=== PATIENT | male | born 1955 | race Caucasian/White ===

== ENCOUNTER 2022-03-08 10:36 | Emergency (ER) | payer BC, MEDICARE ==
[2022-03-08 10:50] LABS: Absolute Neutrophil Ct (ANC) 3.43 x10^3/uL (1.4-6.9); Basophil (Absolute #) 0.07 x10^3/uL (0-0.4); Eosinophil % 2.2 % (0.00-5.0); Eosinophil (Absolute #) 0.14 x10^3/uL (0-0.5); Hematocrit 43.1 % (42-50); Hemoglobin 14.5 g/dL (12.5-18.0); Lymphocytes % 34.4 % (24.0-44.0); Mean Cell Volume 86.5 fL (78-100); Mean Corpuscular Hemoglobin 29.1 pg (26-32); Mean Corpuscular Hgb Concent. 33.6 g/dL (32-36); Mean Platelet Volume 8.6 fL (7.5-11.0); Monocyte (Absolute #) 0.53 x10^3/uL (0.0-1.3); Monocytes % 8.3 % (0.0-12.0); Neutrophil % 53.7 % (36.0-66.0); Platelet Count 239 x10^3/uL (150-450); Red Blood Count 4.98 x10^6/uL (4.1-5.6); Red Cell Distribution Width 13.9 % (11.5-14.0); White Blood Count 6.4 x10^3/uL (4.0-10.5)
[2022-03-08] MEDS ORDERED: Nitrostat 0.4 MG (ED) SL ONE (10:54)
[2022-03-08] MEDS ORDERED: BABY ASPIRIN 81 MG CHEW PO ONE (10:54)
--- NOTE | 2022-03-08 11:00 | ERPHSYRPT ---
- History of Present Illness Historian: patient, other () Exam Limitations: no limitations Patient Subjective Stated Complaint: Pt reports he started having chest pain while walking that is causing tingling into left arm. Triage Nursing Assessment: Pt ambulated to ED cot without difficulty while holding chest. Alert and oriented x3. Skin w/d/p. No apparent respiratory distress. S1 and S2 auscultated. Lungs clear anteriorly. Chest pain started while active. Physician History: 66 yo wm w sudden onset of mid-sternal chest pain w radiation to his LUE which started 90 minutes before arrival while walking into [facility]. Pain described as "someone sitting on chest" and was accompanied by N/dyspnea/diaphoresis wo vomiting. He denies CAD/AK but has a h/o DM/HTN/smoked 1ppd until 4 months ago. Pt takes 81mg ASA daily. Nothing makes the pain better or worse, and it is currently a 6/10 w the worse being 8/10. Timing/Duration: other (90 minutes while walking into [facility]) Quality: other ("sitting on chest") Location: substernal Chest Pain Radiation: arm (LUE) Severity of Pain-Max: severe Severity of Pain-Current: moderate Modifying Factors: Improves With: nothing Associated Symptoms: nausea, shortness of breath, diaphoresis Prior Chest Pain/Cardiac Workup: no prior chest pain Nitro Today/Relief: no nitro taken today Aspirin Treatment Today: 81 mg x 1 Allergies/Adverse Reactions: penicillin G Allergy (Mild, Verified 03/08/22 10:36) Blisters Home Medications: Aspirin EC 81 mg [Ecotrin 81 mg] 81 mg PO DAILY 03/08/22 [History] Empagliflozin/Metformin HCl [Synjardy 12.5-1,000 mg Tablet] 1 tab PO DAILY 03/08/22 [History] Levothyroxine Sodium 137 mcg PO DAILY 03/08/22 [History] Lisinopril 10 mg [Zestril 10 MG] 10 mg PO DAILY 03/08/22 [History] Ondansetron ODT 4 MG [Zofran Odt 4 mg] 4 mg PO Q4HPRN PRN 03/08/22 [History] Hx Tetanus, Diphtheria Vaccination/Date Given: Yes Hx Influenza Vaccination/Date Given: Yes Hx Pneumococcal Vaccination/Date Given: No Travel Risk - International Travel Have you traveled outside of the country in past 3 weeks: No - Coronavirus Screening Are you exhibiting any of the following symptoms?: No Close contact with a COVID-19 positive Pt in past 14-21 Days: No - Vaccine Status Have you recieved a Covid-19 vaccination: Yes Animal Biologist: Moderna - Vaccination Dates Date of 2cond Vaccination (if applicable): unknown Dates if Unknown: ? - Review of Systems Constitutional: No Symptoms Eyes: No Symptoms Ears, Nose, & Throat: No Symptoms Respiratory: No Symptoms Cardiac: Chest Pain Abdominal/Gastrointestinal: No Symptoms, Nausea Musculoskeletal: No Symptoms Skin: No Symptoms Neurological: No Symptoms Psychological: No Symptoms Endocrine: No Symptoms Hematologic/Lymphatic: No Symptoms Immunological/Allergic: No Symptoms - Past Medical History Pertinent Past Medical History: Yes Neurological History: Stroke ENT History: No Pertinent History Cardiac History: Hypertension Respiratory History: COPD Endocrine Medical History: No Pertinent History Musculoskeletal History: Other GI Medical History: No Pertinent History History: No Pertinent History Psycho-Social History: No Pertinent History Male Reproductive Disorders: No Pertinent History - Past Surgical History Past Surgical History: Yes Neuro Surgical History: No Pertinent History Cardiac: No Pertinent History Gastrointestinal: No Pertinent History Genitourinary: No Pertinent History Musculoskeletal: No Pertinent History Male Surgical History: No Pertinent History Other Surgical History: thyroid removed. - Social History Smoking Status: Former smoker How long have you smoked: yrs Exposure to second hand smoke: Yes Drug Use: none Patient Lives Alone: No - Nursing Vital Signs Nursing Vital Signs: Initial Vital Signs Temperature 96.5 F 03/08/22 10:36 Pulse Rate 71 03/08/22 10:36 Respiratory Rate 22 03/08/22 10:36 Blood Pressure 154/97 03/08/22 10:36 O2 Sat by Pulse Oximetry 97 03/08/22 10:36 Pain Scale Pain Intensity 2 Hypertensive - Physical Exam General Appearance: mild distress Eye Exam: PERRL/EOMI, eyes nml inspection Ears, Nose, Throat Exam: normal ENT inspection, TMs normal, pharynx normal, moist mucous membranes Neck Exam: normal inspection, non-tender, supple, full range of motion, No meningismus, No mass, No Brudzinski, No Kernig's, No carotid bruit Respiratory Exam: normal breath sounds, lungs clear, airway intact, No chest tenderness, No respiratory distress Cardiovascular Exam: regular rate/rhythm, normal heart sounds, normal peripheral pulses, capillary refill <2 sec, No murmur Gastrointestinal/Abdomen Exam: soft, normal bowel sounds, No tenderness Back Exam: normal inspection, normal range of motion, No CVA tenderness, No vertebral tenderness Extremity Exam: normal inspection, normal range of motion Neurologic Exam: alert, oriented x 3, cooperative, 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, normal mood/affect, nml cerebellar function, nml station & gait, sensation nml Skin Exam: normal color, warm, dry Lymphatic Exam: No adenopathy SpO2 Interpretation: normal SpO2: 97 O2 Delivery: Room Air - Course EKG Interpreted by Me: RATE (NSR/Rate68/Occ PVC and PAC/Normal QT-QTc/Inferior T wave changes/EKG #2 sinus sobeida/Normal QT-QTc/Flipped Twaves 3 and AVF) - Radiology Exams Chest X-ray Interpretation: Discussed w/ radiologist (CXR-hyperinflated, nothing acute) Ordered Tests: Active Orders 24 hr Category Date Time Status EKG-ER Only STAT Care 03/08/22 10:38 Completed EKG-ER Only STAT Care 03/08/22 14:45 Completed CHEST 1 VIEW (PORTABLE) Stat Exams 03/08/22 10:38 Completed CBC W DIFF Stat Lab 03/08/22 10:50 Completed CMP Stat Lab 03/08/22 10:50 Completed NT PRO BNP Stat Lab 03/08/22 10:50 Completed PROTIME WITH INR Stat Lab 03/08/22 10:50 Completed PTT Stat Lab 03/08/22 10:50 Completed TROPONIN Q4H Lab 03/08/22 10:50 Completed TROPONIN Q4H Lab 03/08/22 13:57 Completed Medication Summary Discontinued Medications Generic Name Dose Route Start Last Admin Trade Name Freq PRN Reason Stop Dose Admin Aspirin 324 mg 03/08/22 10:54 03/08/22 10:57 Aspirin 81 Mg Tab.Chew PO 03/08/22 10:55 324 mg STAT ONE Administration Enoxaparin Sodium 80 mg 03/08/22 15:33 03/08/22 15:36 Enoxaparin Sodium 80 Mg/0.8 Ml Syringe SQ 03/08/22 15:34 80 mg STAT ONE Administration Enoxaparin Sodium Confirm 03/08/22 15:35 Enoxaparin Sodium 80 Mg/0.8 Ml Syringe Administered 03/08/22 15:36 Dose 80 mg SQ .STK-MED ONE Nitroglycerin 0.4 mg 03/08/22 10:54 03/08/22 10:57 Nitroglycerin 0.4 Mg (Ed) 0.4 Mg Tab.Subl SL 03/08/22 10:55 0.4 mg STAT ONE Administration Nitroglycerin 1 gm 03/08/22 16:48 03/08/22 16:53 Nitroglycerin 1 Gm Packet TOP 03/08/22 16:49 1 gm STAT ONE Administration Nitroglycerin Confirm 03/08/22 16:49 Nitroglycerin 1 Gm Packet Administered 03/08/22 16:50 Dose 1 gm .ROUTE .STK-MED ONE Lab/Rad Data: Laboratory Result Diagrams 03/08/22 10:50 03/08/22 10:50 Laboratory Results 03/08/22 03/08/22 03/08/22 Range/Units Unknown 13:57 10:50 WBC (4.0-10.5) x10^3/uL RBC (4.1-5.6) x10^6/uL Hgb (12.5-18.0) g/dL Hct (42-50) % MCV (78-100) fL MCH (26-32) pg MCHC (32-36) g/dL RDW (11.5-14.0) % Plt Count (150-450) x10^3/uL MPV (7.5-11.0) fL Gran % (36.0-66.0) % Immature Gran % (Auto) (0.00-0.4) % Nucleat RBC Rel Count (0.00-0.1) % Eos # (Auto) (0-0.5) x10^3/uL Immature Gran # (Auto) (0.00-0.03) x10^3u/L Absolute Lymphs (auto) (1.0-4.6) x10^3/uL Absolute Monos (auto) (0.0-1.3) x10^3/uL Absolute Nucleated RBC (0.00-0.01) x10^3u/L Lymphocytes % (24.0-44.0) % Monocytes % (0.0-12.0) % Eosinophils % (0.00-5.0) % Basophils % (0.0-0.4) % Absolute Granulocytes (1.4-6.9) x10^3/uL Basophils # (0-0.4) x10^3/uL PT (9.4-12.5) SECONDS INR (0.8-3.0) APTT (25.1-36.5) SECONDS Sodium (137-145) mmol/L Potassium (3.5-5.1) mmol/L Chloride (98-107) mmol/L Carbon Dioxide (22-30) mmol/L Anion Gap (5-15) MEQ/L BUN (9-20) mg/dL Creatinine (0.66-1.25) mg/dL Estimated GFR ML/MIN Glucose (74-106) mg/dL Calcium (8.4-10.2) mg/dL Total Bilirubin (0.2-1.3) mg/dL AST (17-59) U/L ALT (0-50) U/L Alkaline Phosphatase (38-126) U/L Troponin I 0.177 H* < 0.012 (0.000-0.034) ng/mL NT-Pro-B Natriuret Pep (0-900) pg/mL Serum Total Protein (6.3-8.2) g/dL Albumin (3.5-5.0) g/dL Influenza Type A Ag NEGATIVE (NEGATIVE) Influenza Type B Ag NEGATIVE (NEGATIVE) RSV (PCR) NEGATIVE (Negative) SARS-CoV-2 (PCR) NEGATIVE (NEGATIVE) 03/08/22 03/08/22 03/08/22 Range/Units 10:50 10:50 10:50 WBC 6.4 (4.0-10.5) x10^3/uL RBC 4.98 (4.1-5.6) x10^6/uL Hgb 14.5 (12.5-18.0) g/dL Hct 43.1 (42-50) % MCV 86.5 (78-100) fL MCH 29.1 (26-32) pg MCHC 33.6 (32-36) g/dL RDW 13.9 (11.5-14.0) % Plt Count 239 (150-450) x10^3/uL MPV 8.6 (7.5-11.0) fL Gran % 53.7 (36.0-66.0) % Immature Gran % (Auto) 0.3 (0.00-0.4) % Nucleat RBC Rel Count 0.0 (0.00-0.1) % Eos # (Auto) 0.14 (0-0.5) x10^3/uL Immature Gran # (Auto) 0.02 (0.00-0.03) x10^3u/L Absolute Lymphs (auto) 2.20 (1.0-4.6) x10^3/uL Absolute Monos (auto) 0.53 (0.0-1.3) x10^3/uL Absolute Nucleated RBC 0.00 (0.00-0.01) x10^3u/L Lymphocytes % 34.4 (24.0-44.0) % Monocytes % 8.3 (0.0-12.0) % Eosinophils % 2.2 (0.00-5.0) % Basophils % 1.1 (0.0-0.4) % Absolute Granulocytes 3.43 (1.4-6.9) x10^3/uL Basophils # 0.07 (0-0.4) x10^3/uL PT 9.8 (9.4-12.5) SECONDS INR 0.92 (0.8-3.0) APTT 25.3 (25.1-36.5) SECONDS Sodium 136 L (137-145) mmol/L Potassium 4.1 (3.5-5.1) mmol/L Chloride 109 H (98-107) mmol/L Carbon Dioxide 23 (22-30) mmol/L Anion Gap 8.6 (5-15) MEQ/L BUN 21 H (9-20) mg/dL Creatinine 0.77 (0.66-1.25) mg/dL Estimated GFR > 60.0 ML/MIN Glucose 119 H (74-106) mg/dL Calcium 8.7 (8.4-10.2) mg/dL Total Bilirubin 0.60 (0.2-1.3) mg/dL AST 32 (17-59) U/L ALT 22 (0-50) U/L Alkaline Phosphatase 95 (38-126) U/L Troponin I (0.000-0.034) ng/mL NT-Pro-B Natriuret Pep 27.4 (0-900) pg/mL Serum Total Protein 6.7 (6.3-8.2) g/dL Albumin 3.9 (3.5-5.0) g/dL Influenza Type A Ag (NEGATIVE) Influenza Type B Ag (NEGATIVE) RSV (PCR) (Negative) SARS-CoV-2 (PCR) (NEGATIVE) - Progress Progress: improved Air Movement: good Progress Note: 03/08/22 14:57 ASA 324mg po x1 1 SL NTG w total relief of pain 03/08/22 16:[address] Silva at [place]([facility] has no cardiology coverage this weekend) 80mg sq Lovenox Pt painfree after initial SL NTG 0.4 x1 03/08/22 22:06 Pt developed mild chest pain before transfer, so nitropaste placed on chest Counseled pt/family regarding: lab results, diagnosis, need for follow-up, rad results - Departure Departure Disposition: Transfer Clinical Impression: NSTEMI (non-ST elevated myocardial infarction) Condition: Stable Critical Care Time: Yes Critical Care Time(excluding separately billable procedures): Critical 30-74 mins Referrals: POPPY TAN NP [NON-STAFF PHY W/O PRIVILEGES] - Follow up/PCP as directed
[2022-03-08 11:08] LABS: INR 0.92 (0.8-3.0); PROTIME 9.8 SECONDS (9.4-12.5); PTT 25.3 SECONDS (25.1-36.5)
[2022-03-08 11:13] LABS: ALBUMIN 3.9 g/dL (3.5-5.0); ALKALINE PHOSPHATASE 95 U/L (38-126); ANION GAP 8.6 MEQ/L (5-15); BLOOD UREA NITROGEN 21 mg/dL (9-20); CHLORIDE 109 mmol/L (98-107); Calcium 8.7 mg/dL (8.4-10.2); Carbon Dioxide 23 mmol/L (22-30); Creatinine 1 0.77 mg/dL (0.66-1.25); EST GLOMERULAR FILTRATION RATE > 60.0 ML/MIN; Glucose 119 mg/dL (74-106); NT PRO BNP 27.4 pg/mL (0-900); Potassium 4.1 mmol/L (3.5-5.1); SGOT/AST 32 U/L (17-59); SGPT/ALT 22 U/L (0-50); SODIUM 136 mmol/L (137-145); Total Protein 6.7 g/dL (6.3-8.2)
--- NOTE | 2022-03-08 11:19 | XRAY ---
Indication: Chest pain. Comparison: February 07, 2012 Portable chest remains hyperinflated and clear. Heart and mediastinal structures within normal limits. Bony thorax intact again with mild osteopenia and degenerative changes. Impression: Continued nonacute hyperinflated chest.
[2022-03-08 15:20] LABS: INFLUENZA A NEGATIVE (NEGATIVE); INFLUENZA B NEGATIVE (NEGATIVE); RESPIRATORY SYNCTIAL VIRUS NEGATIVE (Negative); SARS-CoV-2 Xpert Express NEGATIVE (NEGATIVE)
[2022-03-08] MEDS ORDERED: ENOXAPARIN SODIUM SQ ONE ×2 (15:33→15:35)
[2022-03-08] MEDS ORDERED: NITRO-BID 2% UD PACKETS TOP ONE (16:48)
[2022-03-08] MEDS ORDERED: NITRO-BID 2% UD PACKETS ONE (16:49)
[2022-03-08 17:04] VITALS: BP 118/61; PULSE 80
[2022-03-08 22:07] VITALS: O2SAT 97
== END 2022-03-08 17:00 | disposition short-term general hospital (02) ==
LOC: ED 10:36
DX: I21.4 Non-ST elevation (NSTEMI) myocardial infarction (principal); R07.9 Chest pain, unspecified; R11.0 Nausea; R06.00 Dyspnea, unspecified; E11.9 Type 2 diabetes mellitus without complications; I10 Essential (primary) hypertension; Z79.84 Long term (current) use of oral hypoglycemic drugs; Z79.899 Other long term (current) drug therapy
CPT/HCPCS: 0241U; 36000; 36415; 71045; 80053; 83880; 84484; 85025; 85610; 85730; 93005; 96372; 99285; 99291; J1650; A9270-GY

== ENCOUNTER 2022-06-02 17:52 | Observation (INO) | payer MEDICARE ==
[2022-06-02] MEDS ORDERED: Zofran 4 MG/2 ML VIAL IV ONE (17:54)
[2022-06-02] MEDS ORDERED: MORPHINE SULFATE 2 MG INJ IV ONE (17:54)
[2022-06-02] MEDS ORDERED: Nitrostat 0.4 MG (ED) SL ONE ×2 (17:54→18:07)
[2022-06-02] MEDS ORDERED: BABY ASPIRIN 81 MG CHEW PO ONE (17:54)
--- NOTE | 2022-06-02 17:54 | ERPHSYRPT ---
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 10/10 severity at max, currently 3/10 No radiation. Described as pressure. Lasts for a few minutes. Both at rest and on exertion. +nausea, diaphoresis, cough Denies SOB, vomiting, diarrhea, abd pain, swelling Hx of LAD stent on 03/09/[address] Genao Timing/Duration: today Activities at Onset: other (using the restroom) Quality: pressure Location: central Chest Pain Radiation: no radiation Severity of Pain-Max: severe Severity of Pain-Current: mild Modifying Factors: Improves With: nitroglycerin. Worsens With: coughing, de fecating, exertion Associated Symptoms: nausea, cough, headache, No vomiting, No abdominal pain, No shortness of breath, No chills, No fever, No dizziness, No edema Prior Chest Pain/Cardiac Workup: cardiac cath, heart attack Nitro Today/Relief: 0.4 mg x 1, provided at home Aspirin Treatment Today: 81 mg x 1, provided at home Allergies/Adverse Reactions: penicillin G Allergy (Mild, Verified 06/02/22 17:55) Blisters Home Medications: Aspirin EC 81 mg [Ecotrin 81 mg] 81 mg PO DAILY 03/08/22 [History] Empagliflozin/Metformin HCl [Synjardy 12.5-1,000 mg Tablet] 1 tab PO DAILY 03/08/22 [History] Levothyroxine Sodium 137 mcg PO DAILY 03/08/22 [History] Lisinopril 10 mg [Zestril 10 MG] 10 mg PO DAILY 03/08/22 [History] Ondansetron ODT 4 MG [Zofran Odt 4 mg] 4 mg PO Q4HPRN PRN 03/08/22 [History] Hx Tetanus, Diphtheria Vaccination/Date Given: Yes Hx Influenza Vaccination/Date Given: Yes Hx Pneumococcal Vaccination/Date Given: No Travel Risk - Vaccine Status Have you recieved a Covid-19 vaccination: Yes Chief Marketing Officer: Moderna - Vaccination Dates Date of 2cond Vaccination (if applicable): unknown Dates if Unknown: ? - Review of Systems Constitutional: No Symptoms Eyes: No Symptoms Ears, Nose, & Throat: No Symptoms Respiratory: Cough, No Dyspnea, No Dyspnea on Exertion (GUTIERREZ) Cardiac: Chest Pain, No Edema, No Palpitations, No Orthopnea Abdominal/Gastrointestinal: Nausea, No Abdominal Pain, No Vomiting, No Diarrhea, No Constipation Genitourinary Symptoms: No Symptoms Musculoskeletal: No Symptoms Skin: No Symptoms Neurological: No Symptoms Psychological: No Symptoms Endocrine: No Symptoms Hematologic/Lymphatic: No Symptoms Immunological/Allergic: No Symptoms All Other Systems: Reviewed and Negative - Past Medical History Pertinent Past Medical History: Yes Neurological History: Stroke ENT History: No Pertinent History Cardiac History: Hypertension Respiratory History: COPD Endocrine Medical History: No Pertinent History Musculoskeletal History: Other GI Medical History: No Pertinent History History: No Pertinent History Psycho-Social History: No Pertinent History Male Reproductive Disorders: No Pertinent History - Past Surgical History Past Surgical History: Yes Neuro Surgical History: No Pertinent History Cardiac: No Pertinent History Gastrointestinal: No Pertinent History Genitourinary: No Pertinent History Musculoskeletal: No Pertinent History Male Surgical History: No Pertinent History Other Surgical History: thyroid removed. - Social History Smoking Status: Former smoker How long have you smoked: yrs Exposure to second hand smoke: Yes Drug Use: none Patient Lives Alone: No - Physical Exam General Appearance: mild distress Eye Exam: eyes nml inspection Ears, Nose, Throat Exam: normal ENT inspection Neck Exam: normal inspection Respiratory Exam: normal breath sounds, lungs clear, airway intact, No chest tenderness, No respiratory distress Cardiovascular Exam: regular rate/rhythm, normal heart sounds, No capillary refill <2 sec, No edema Gastrointestinal/Abdomen Exam: soft, normal bowel sounds, No tenderness, No guarding, No rebound Extremity Exam: normal inspection, No swelling, No tenderness Neurologic Exam: alert, oriented x 3, cooperative Skin Exam: diaphoresis SpO2 Interpretation: normal O2 Delivery: Room Air - Course Nursing assessment & vital signs reviewed: Yes EKG Interpreted by Me: RATE (66), Sinus Rhythm, NORMAL AXIS, NORMAL INTERVALS, Non-specific ST Changes - Radiology Exams Chest X-ray Interpretation: Interpreted by me, Negative - Progress Progress: improved Air Movement: good Progress Note: 06/02/22 18:54 Initial troponin neg, EKG shows no ST changes. D-dimer neg, CBC, CMP wnl. Will keep patient for 2nd troponin and likely admit for ACS r/o. Transfer care to Dr. Hutton at 1900. Blood Culture(s) Obtained: No Antibiotics given: No Medical Desision Making - Diagnostic Testing Diagnostic test were ordered, analyzed, and reviewed by me: Yes Radiological Interpretation: Interpreted by me - Risk of complications The pt has a mod risk of morbidity or mortality based on: Need for prescription drug management - Departure Clinical Impression: H/O heart artery stent Chest pain Qualifiers: Chest pain type: chest pain due to myocardial ischemia Ischemic chest pain type: stable angina pectoris Qualified Code(s): I20.8 - Other forms of angina p ectoris Condition: Fair Referrals: MAMADOU HUTTON MD [Primary Care Provider] - Follow up/PCP as directed Instructions: Angina (DC), Chest Pain (DC) Additional Instructions: Discharge/Care Plan DILSHAD CARDENAS was seen on 06/02/22 in the Emergency Room. The patient was counseled regarding Diagnosis,Lab results, Imaging studies, need for follow up and when to return to the Emergency Room. Prescriptions given: Discharge Note I have spoken with the patient and/or caregivers. I have explained the patient's condition, diagnosis and treatment plan based on the information available to me at this time. I have answered the patient's and/or caregiver's questions and addressed any concerns. The patient and/or caregivers have as good understanding of the patient's diagnosis, condition and treatment plan as can be expected at this point. The vital signs have been stable. The patient's condition is stable and appropriate for discharge from the emergency department. The patient will pursue further outpatient evaluation with the primary care physician or other designated or consulting physician as outlined in the discharge instructions. The patient and/or caregivers are agreeable to this plan of care and follow-up instructions have been explained in detail. The patient and/or caregivers have received these instruction. The patient/and or caregivers are aware that any significant change in condition or worsening of symptoms should prompt an immediate return to this or the closest emergency department or call 911. DILSHAD CARDENAS was seen on 06/02/22 n the Emergency Room. At that time you were treated for an emergent condition, during your visit Laboratory, Radiology and/or other procedures may have been ordered. It is very important that you follow-up with your Primary Care Physician MAMADOU HUTTON within the next 24-48 hours to review your Emergency Room visit and the final results of testing that was ordered. Some test results such as Urine Cultures, Blood Cultures, and other cultures if ordered will not be finalized for 24-48 hours. If you do not have a Primary Care Provider please call the medical records department at [phone] ext [phone] to obtain a copy of your results or you may sign into our patient portal to obtain these results by visiting us @ [email or web address] and completing the following steps: 1. Click on the Patient Portal link 2. Click the Patient Self Enrollment Link to complete the enrollment form and entering your 3. Once the enrollment form is completed you will receive an email with a temporary ID and password at the email address you provided. 4. Next choose a user name and password. Your user name must be at least 4 characters long and your password must be at least 4 characters long. 5. Choose a security question from the list and provide your answer to the question. If you already have signed into the Health Portal you may access your Health Care Information 30/09 by the following steps: 1. Login to our website @ [email or web address] 2. Enter your original user name and password. FAQS The [facility] Health Portal is an online tool that contains your Lab Results, Radiology Reports, Visit History, Discharge Instructions and Health Summary Lab and Radiology Results will not be available for 72 hours on the portal. The Portal is a secure site, passwords are encryted and URLs are re-written so they cannot be copied and pasted. You and authorized family members are the only ones who can access your Portal. Also there is a timeout feature that protects your information if you leave the Portal page open. If you have technical difficulty please use the Contact Us link on the page this will allow you to submit any questions you have regarding the Portal or you may contact the Medical Record Department at [phone]. <MAMADOU HUTTON - Last Filed: 06/02/22 19:20> - Past Medical History Cardiac History: Coronary Artery Disease, Myocardial Infarction ([place]) - Nursing Vital Signs Nursing Vital Signs: Initial Vital Signs Temperature 97.6 F 06/02/22 17:55 Pulse Rate 65 06/02/22 17:55 Respiratory Rate 20 06/02/22 17:55 Blood Pressure 105/65 06/02/22 17:55 O2 Sat by Pulse Oximetry 96 06/02/22 17:55 Pain Scale Pain Intensity 6 Ordered Tests: Active Orders 24 hr Category Date Time Status Cpr Ambulance Driver STAT Care 06/02/22 17:55 Active EKG-ER Only STAT Care 06/02/22 17:54 Active IV Insertion STAT Care 06/02/22 17:54 Active Pulse Oximetry (ED) STAT Care 06/02/22 17:54 Active CHEST 1 VIEW (PORTABLE) Stat Exams 06/02/22 17:55 Taken CBC W DIFF Stat Lab 06/02/22 18:10 Completed CMP Stat Lab 06/02/22 18:10 Completed D-DIMER QUANTITATIVE Stat Lab 06/02/22 18:10 Completed TROPONIN Q4H Lab 06/02/22 18:10 Completed TROPONIN Q4H Lab 06/02/22 22:00 Ordered TROPONIN Q4H Lab 06/03/22 02:00 Ordered Transfer Order Routine Transfer 06/02/22 Ordered Medication Summary Generic Name Dose Route Start Last Admin Trade Name Freq PRN Reason Stop Dose Admin Sodium Chloride 1,000 mls @ 999 mls/hr 06/02/22 18:35 06/02/22 18:37 Sodium Chloride 0.9% 1000 Ml IV 06/02/22 19:35 999 mls/hr .Q1H1M STA Administration Discontinued Medications Generic Name Dose Route Start Last Admin Trade Name Freq PRN Reason Stop Dose Admin Aspirin 324 mg 06/02/22 17:54 06/02/22 18:06 Aspirin 81 Mg Tab.Chew PO 06/02/22 17:55 324 mg STAT ONE Administration Aspirin Confirm 06/02/22 18:07 Aspirin 81 Mg Tab.Chew Administered 06/02/22 18:08 Dose 324 mg .ROUTE .STK-MED ONE Sodium Chloride Confirm 06/02/22 18:36 Sodium Chloride 0.9% 1000 Ml Administered 06/02/22 18:37 Dose 1,000 mls @ ud .ROUTE .STK-MED ONE Morphine Sulfate 2 mg 06/02/22 17:54 06/02/22 18:06 Morphine Sulfate 2 Mg/Ml Inj IV 06/02/22 17:55 2 mg STAT ONE Administration Morphine Sulfate Confirm 06/02/22 18:03 Morphine Sulfate 2 Mg/Ml Inj Administered 06/02/22 18:04 Dose 2 mg .ROUTE .STK-MED ONE Nitroglycerin 0.4 mg 06/02/22 17:54 06/02/22 18:07 Nitroglycerin 0.4 Mg (Ed) 0.4 Mg Tab.Subl SL 06/02/22 17:55 0.4 mg STAT ONE Administration Nitroglycerin Confirm 06/02/22 18:07 Nitroglycerin 0.4 Mg (Ed) 0.4 Mg Tab.Subl Administered 06/02/22 18:08 Dose 0.4 mg SL .STK-MED ONE Ondansetron HCl 4 mg 06/02/22 17:54 06/02/22 18:06 Ondansetron Hcl 4 Mg/2 Ml Vial IV 06/02/22 17:55 4 mg STAT ONE Administration Ondansetron HCl Confirm 06/02/22 18:03 Ondansetron Hcl 4 Mg/2 Ml Vial Administered 06/02/22 18:04 Dose 4 mg .ROUTE .STK-MED ONE Lab/Rad Data: Laboratory Result Diagrams 06/02/22 18:10 06/02/22 18:10 Laboratory Results 06/02/22 06/02/22 06/02/22 Range/Units 18:10 18:10 18:10 WBC (4.0-10.5) x10^3/uL RBC (4.1-5.6) x10^6/uL Hgb (12.5-18.0) g/dL Hct (42-50) % MCV (78-100) fL MCH (26-32) pg MCHC (32-36) g/dL RDW (11.5-14.0) % Plt Count (150-450) x10^3/uL MPV (7.5-11.0) fL Gran % (36.0-66.0) % Immature Gran % (Auto) (0.00-0.4) % Nucleat RBC Rel Count (0.00-0.1) % Eos # (Auto) (0-0.5) x10^3/uL Immature Gran # (Auto) (0.00-0.03) x10^3u/L Absolute Lymphs (auto) (1.0-4.6) x10^3/uL Absolute Monos (auto) (0.0-1.3) x10^3/uL Absolute Nucleated RBC (0.00-0.01) x10^3u/L Lymphocytes % (24.0-44.0) % Monocytes % (0.0-12.0) % Eosinophils % (0.00-5.0) % Basophils % (0.0-0.4) % Absolute Granulocytes (1.4-6.9) x10^3/uL Basophils # (0-0.4) x10^3/uL D-Dimer < 0.19 (0.0-0.50) mg/L Sodium 138 (137-145) mmol/L Potassium 4.1 (3.5-5.1) mmol/L Chloride 102 (98-107) mmol/L Carbon Dioxide 27 (22-30) mmol/L Anion Gap 13.1 (5-15) MEQ/L BUN 30 H (9-20) mg/dL Creatinine 0.93 (0.66-1.25) mg/dL Estimated GFR > 60.0 ML/MIN Glucose 161 H (74-106) mg/dL Calcium 8.4 (8.4-10.2) mg/dL Total Bilirubin 0.40 (0.2-1.3) mg/dL AST 39 (17-59) U/L ALT 31 (0-50) U/L Alkaline Phosphatase 82 (38-126) U/L Troponin I < 0.012 (0.000-0.034) ng/mL Serum Total Protein 6.2 L (6.3-8.2) g/dL Albumin 3.7 (3.5-5.0) g/dL 06/02/22 Range/Units 18:10 WBC 9.0 (4.0-10.5) x10^3/uL RBC 4.93 (4.1-5.6) x10^6/uL Hgb 14.3 (12.5-18.0) g/dL Hct 43.0 (42-50) % MCV 87.2 (78-100) fL MCH 29.0 (26-32) pg MCHC 33.3 (32-36) g/dL RDW 14.4 H (11.5-14.0) % Plt Count 216 (150-450) x10^3/uL MPV 9.1 (7.5-11.0) fL Gran % 52.3 (36.0-66.0) % Immature Gran % (Auto) 0.6 H (0.00-0.4) % Nucleat RBC Rel Count 0.0 (0.00-0.1) % Eos # (Auto) 0.10 (0-0.5) x10^3/uL Immature Gran # (Auto) 0.05 H (0.00-0.03) x10^3u/L Absolute Lymphs (auto) 3.53 (1.0-4.6) x10^3/uL Absolute Monos (auto) 0.53 (0.0-1.3) x10^3/uL Absolute Nucleated RBC 0.00 (0.00-0.01) x10^3u/L Lymphocytes % 39.3 (24.0-44.0) % Monocytes % 5.9 (0.0-12.0) % Eosinophils % 1.1 (0.00-5.0) % Basophils % 0.8 (0.0-0.4) % Absolute Granulocytes 4.70 (1.4-6.9) x10^3/uL Basophils # 0.07 (0-0.4) x10^3/uL D-Dimer (0.0-0.50) mg/L Sodium (137-145) mmol/L Potassium (3.5-5.1) mmol/L Chloride (98-107) mmol/L Carbon Dioxide (22-30) mmol/L Anion Gap (5-15) MEQ/L BUN (9-20) mg/dL Creatinine (0.66-1.25) mg/dL Estimated GFR ML/MIN Glucose (74-106) mg/dL Calcium (8.4-10.2) mg/dL Total Bilirubin (0.2-1.3) mg/dL AST (17-59) U/L ALT (0-50) U/L Alkaline Phosphatase (38-126) U/L Troponin I (0.000-0.034) ng/mL Serum Total Protein (6.3-8.2) g/dL Albumin (3.5-5.0) g/dL - Progress Will see patient in: hospital (observation) Counseled pt/family regarding: lab results, diagnosis, need for follow-up, rad results Medical Desision Making - Risk of complications The pt has a high risk of morbidity or mortality based on: Decision regarding hospitilization or escalation of hosp level of care - Departure Departure Disposition: Observation Critical Care Time: Yes Critical Care Time(excluding separately billable procedures): Critical 30-74 mins
[2022-06-02] MEDS ORDERED: Zofran 4 MG/2 ML VIAL ONE (18:03)
[2022-06-02] MEDS ORDERED: MORPHINE SULFATE 2 MG INJ ONE (18:03)
[2022-06-02] MEDS ORDERED: BABY ASPIRIN 81 MG CHEW ONE (18:07)
[2022-06-02 18:13] LABS: BASOPHIL % 0.8 % (0.0-0.4); Basophil (Absolute #) 0.07 x10^3/uL (0-0.4); Eosinophil % 1.1 % (0.00-5.0); Hemoglobin 14.3 g/dL (12.5-18.0); IMMATURE GRAN # 0.05 x10^3u/L (0.00-0.03); IMMATURE GRAN % 0.6 % (0.00-0.4); Lymphocyte (Absolute #) 3.53 x10^3/uL (1.0-4.6); Lymphocytes % 39.3 % (24.0-44.0); Mean Cell Volume 87.2 fL (78-100); Mean Corpuscular Hgb Concent. 33.3 g/dL (32-36); Mean Platelet Volume 9.1 fL (7.5-11.0); Monocyte (Absolute #) 0.53 x10^3/uL (0.0-1.3); Monocytes % 5.9 % (0.0-12.0); Neutrophil % 52.3 % (36.0-66.0); Platelet Count 216 x10^3/uL (150-450); Red Blood Count 4.93 x10^6/uL (4.1-5.6); Red Cell Distribution Width 14.4 % (11.5-14.0)
[2022-06-02 18:23] LABS: ALBUMIN 3.7 g/dL (3.5-5.0); ALKALINE PHOSPHATASE 82 U/L (38-126); ANION GAP 13.1 MEQ/L (5-15); BLOOD UREA NITROGEN 30 mg/dL (9-20); CHLORIDE 102 mmol/L (98-107); Calcium 8.4 mg/dL (8.4-10.2); Carbon Dioxide 27 mmol/L (22-30); Creatinine 1 0.93 mg/dL (0.66-1.25); EST GLOMERULAR FILTRATION RATE > 60.0 ML/MIN; Glucose 161 mg/dL (74-106); Potassium 4.1 mmol/L (3.5-5.1); SGOT/AST 39 U/L (17-59); SGPT/ALT 31 U/L (0-50); SODIUM 138 mmol/L (137-145); Total Protein 6.2 g/dL (6.3-8.2)
[2022-06-02] MEDS ORDERED: Sodium Chloride 0.9% 1000 ML 1,000 ML IV STA (18:35)
[2022-06-02] MEDS ORDERED: Sodium Chloride 0.9% 1000 ML 1,000 ML ONE (18:36)
[2022-06-02 19:44] LABS: INFLUENZA A NEGATIVE (NEGATIVE); INFLUENZA B NEGATIVE (NEGATIVE); RESPIRATORY SYNCTIAL VIRUS NEGATIVE (NEGATIVE); SARS-CoV-2 Xpert Express NEGATIVE (NEGATIVE)
--- NOTE | 2022-06-02 19:55 | XRAY ---
Indication: Chest pain. Comparison: March 08, 2022 Portable chest remains hyperinflated and clear. Heart not enlarged. Bony thorax intact again with osteopenia and mild degenerative changes. Impression: Continued nonacute hyperinflated chest.
[2022-06-02] MEDS ORDERED: Zofran 4 MG/2 ML VIAL IV PRN ×2 (22:08)
[2022-06-02] MEDS ORDERED: Senokot-S Tablet PO PRN ×2 (22:08)
[2022-06-02] MEDS ORDERED: TYLENOL 325 MG PO PRN ×2 (22:08)
[2022-06-02] MEDS ORDERED: MAALOX ES 30 ML UNIT DOSE PO PRN ×2 (22:08)
[2022-06-02] MEDS ORDERED: MILK OF MAGNESIA 30 ML PO PRN ×2 (22:08)
[2022-06-03 02:54] LABS: Risk Ratio 2.9
[2022-06-03] MEDS ORDERED: SYNTHROID 25 MCG PO SCH (07:00)
[2022-06-03] MEDS: SYNTHROID 112 MCG PO SCH ×2 (07:13→07:44)
[2022-06-03 11:38] VITALS: BP 101/62; PULSE 63; O2SAT 97
--- NOTE | 2022-06-03 12:25 | PCM.SSS ---
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 10/10 severity at max, currently 3/10 No radiation. Described as pressure. Lasts for a few minutes. Both at rest and on exertion. +nausea, diaphoresis, cough Denies SOB, vomiting, diarrhea, abd pain, swelling Hx of LAD stent on 03/09/[address] Chinchilla Timing/Duration: today Activities at Onset: other (using the restroom) Quality: pressure Location: central Chest Pain Radiation: no radiation Severity of Pain-Max: severe Severity of Pain-Current: mild Modifying Factors: Improves With: nitroglycerin. Worsens With: coughing, defecating, exertion Associated Symptoms: nausea, cough, headache, No vomiting, No abdominal pain, No shortness of breath, No chills, No fever, No dizziness, No edema Prior Chest Pain/Cardiac Workup: cardiac cath, heart attack Nitro Today/Relief: 0.4 mg x 1, provided at home Aspirin Treatment Today: 81 mg x 1, provided at home - Review of Systems Constitutional: No Fever, No Chills Eyes: No Symptoms Ears, Nose, & Throat: No Symptoms Respiratory: No Cough, No Short Of Breath Cardiac: Chest Pain, No Edema, No Syncope Abdominal/Gastrointestinal: No Abdominal Pain, No Nausea, No Vomiting, No Diarrhea Genitourinary Symptoms: No Dysuria Musculoskeletal: No Back Pain, No Neck Pain Skin: No Rash Neurological: No Dizziness, No Focal Weakness, No Sensory Changes Psychological: No Symptoms Endocrine: No Symptoms Hematologic/Lymphatic: No Symptoms Immunological/Allergic: No Symptoms Medications & Allergies Home Medications: Home Medication List Aspirin EC 81 mg [Ecotrin 81 mg] 81 mg PO DAILY 03/08/22 [History Confirmed 06/02/22] Empagliflozin/Metformin HCl [Synjardy 12.5-1,000 mg Tablet] 1 tab PO DAILY 03/08/22 [History Confirmed 06/02/22] Levothyroxine Sodium 137 mcg PO DAILY 03/08/22 [History Confirmed 06/02/22] Lisinopril 10 mg [Zestril 10 MG] 10 mg PO DAILY 03/08/22 [History Confirmed 06/02/22] Ondansetron ODT 4 MG [Zofran Odt 4 mg] 4 mg PO Q4HPRN PRN 03/08/22 [History Confirmed 06/02/22] Atorvastatin Calcium 80 mg PO HS 06/02/22 [History Confirmed 06/02/22] Clopidogrel Bisulfate [Plavix] 1 tab PO DAILY 06/02/22 [History Confirmed 06/02/22] Levalbuterol Tartrate [Levalbuterol Tartrate Hfa] 2 puffs IH Q4H PRN PRN 06/02/22 [History Confirmed 06/02/22] Metoprolol Tartrate 25 mg [Lopressor 25MG Tab] 12.5 mg PO BID 06/02/22 [History Confirmed 06/02/22] Nitroglycerin 0.4 mg Tablet [Nitrostat 0.4 MG Tablet] 1 tab PO Q4H PRN PRN 06/02/22 [History Confirmed 06/02/22] Allergies/Adverse Reactions: Allergies Allergy/AdvReac Type Severity Reaction Status Date / Time penicillin G Allergy Mild Blisters Verified 06/02/22 17:55 - Past Medical History Past Medical History: Yes Neurological History: No Pertinent History ENT History: No Pertinent History Cardiac History: Hypertension, Myocardial Infarction ([place]) Respiratory History: COPD Endocrine Medical History: Diabetes Type II, Thyroid Cancer Musculoskelatal History: Arthritis GI Medical History: No Pertinent History History: No Pertinent History Pyscho-Social History: No Pertinent History Male Reproductive Disorders: No Pertinent History - Past Surgical History Past Surgical History: Yes Neuro Surgical History: No Pertinent History Cardiac History: Cardiac Stent Respiratory Surgery: No Pertinent History GI Surgical History: No Pertinent History Genitourinary Surgical Hx: No Pertinent History Musculskeletal Surgical Hx: No Pertinent History Male Surgical History: No Pertinent History Other Surgical History: thyroid removed. - Social History Smoking Status: Former smoker How long have you smoked: yrs Exposure to second hand smoke: No Alcohol: None Drug Use: none - Physical Exam Vital Signs: Vital Signs - 24 hr Temp Pulse Resp BP Pulse Ox 06/03/22 11:00 97.7 F 63 17 101/62 97 06/03/22 07:22 98 F 58 L 17 124/60 95 06/03/22 04:00 97.0 F 64 19 125/63 95 06/02/22 22:17 96.9 F 58 L 19 129/73 98 06/02/22 21:10 56 L 12 115/72 94 L 06/02/22 20:00 60 17 115/66 96 06/02/22 19:00 61 16 108/70 94 L 06/02/22 18:04 95 06/02/22 17:55 97.6 F 65 20 105/65 96 General Appearance: no apparent distress, alert Neurologic Exam: alert, oriented x 3, cooperative, normal mood/affect, nml cerebellar function, nml station & gait, sensation nml, No motor deficits Eye Exam: PERRL/EOMI, eyes nml inspection Ears, Nose, Throat Exam: normal ENT inspection, TMs normal, pharynx normal, moist mucous membranes Neck Exam: normal inspection, non-tender, supple, full range of motion Respiratory Exam: normal breath sounds, lungs clear, No respiratory distress Cardiovascular Exam: regular rate/rhythm, normal heart sounds, normal peripheral pulses Gastrointestinal/Abdomen Exam: soft, normal bowel sounds, No tenderness, No mass Back Exam: normal inspection, normal range of motion, No CVA tenderness, No vertebral tenderness Extremity Exam: normal inspection, normal range of motion, pelvis stable Skin Exam: normal color, warm, dry, No rash Lymphatic Exam: No adenopathy Results - Labs Lab/Micro Results: Lab Results-Last 24 Hours 06/02/22 06/02/22 06/02/22 Range/Units 07:10 18:10 18:10 WBC 9.0 (4.0-10.5) x10^3/uL RBC 4.93 (4.1-5.6) x10^6/uL Hgb 14.3 (12.5-18.0) g/dL Hct 43.0 (42-50) % MCV 87.2 (78-100) fL MCH 29.0 (26-32) pg MCHC 33.3 (32-36) g/dL RDW 14.4 H (11.5-14.0) % Plt Count 216 (150-450) x10^3/uL MPV 9.1 (7.5-11.0) fL Gran % 52.3 (36.0-66.0) % Immature Gran % (Auto) 0.6 H (0.00-0.4) % Nucleat RBC Rel Count 0.0 (0.00-0.1) % Eos # (Auto) 0.10 (0-0.5) x10^3/uL Immature Gran # (Auto) 0.05 H (0.00-0.03) x10^3u/L Absolute Lymphs (auto) 3.53 (1.0-4.6) x10^3/uL Absolute Monos (auto) 0.53 (0.0-1.3) x10^3/uL Absolute Nucleated RBC 0.00 (0.00-0.01) x10^3u/L Lymphocytes % 39.3 (24.0-44.0) % Monocytes % 5.9 (0.0-12.0) % Eosinophils % 1.1 (0.00-5.0) % Basophils % 0.8 (0.0-0.4) % Absolute Granulocytes 4.70 (1.4-6.9) x10^3/uL Basophils # 0.07 (0-0.4) x10^3/uL D-Dimer (0.0-0.50) mg/L Sodium 138 (137-145) mmol/L Potassium 4.1 (3.5-5.1) mmol/L Chloride 102 (98-107) mmol/L Carbon Dioxide 27 (22-30) mmol/L Anion Gap 13.1 (5-15) MEQ/L BUN 30 H (9-20) mg/dL Creatinine 0.93 (0.66-1.25) mg/dL Estimated GFR > 60.0 ML/MIN Glucose 161 H (74-106) mg/dL Calcium 8.4 (8.4-10.2) mg/dL Total Bilirubin 0.40 (0.2-1.3) mg/dL AST 39 (17-59) U/L ALT 31 (0-50) U/L Alkaline Phosphatase 82 (38-126) U/L Troponin I (0.000-0.034) ng/mL Serum Total Protein 6.2 L (6.3-8.2) g/dL Albumin 3.7 (3.5-5.0) g/dL Triglycerides (30-150) mg/dL Cholesterol (50-200) mg/dL LDL Cholesterol (30-100) mg/dL HDL Cholesterol (40-60) mg/dL Heart Disease Risk Ratio Influenza Type A Ag NEGATIVE (NEGATIVE) Influenza Type B Ag NEGATIVE (NEGATIVE) RSV (PCR) NEGATIVE (NEGATIVE) SARS-CoV-2 (PCR) NEGATIVE (NEGATIVE) 06/02/22 06/02/22 06/02/22 Range/Units 18:10 18:10 21:20 WBC (4.0-10.5) x10^3/uL RBC (4.1-5.6) x10^6/uL Hgb (12.5-18.0) g/dL Hct (42-50) % MCV (78-100) fL MCH (26-32) pg MCHC (32-36) g/dL RDW (11.5-14.0) % Plt Count (150-450) x10^3/uL MPV (7.5-11.0) fL Gran % (36.0-66.0) % Immature Gran % (Auto) (0.00-0.4) % Nucleat RBC Rel Count (0.00-0.1) % Eos # (Auto) (0-0.5) x10^3/uL Immature Gran # (Auto) (0.00-0.03) x10^3u/L Absolute Lymphs (auto) (1.0-4.6) x10^3/uL Absolute Monos (auto) (0.0-1.3) x10^3/uL Absolute Nucleated RBC (0.00-0.01) x10^3u/L Lymphocytes % (24.0-44.0) % Monocytes % (0.0-12.0) % Eosinophils % (0.00-5.0) % Basophils % (0.0-0.4) % Absolute Granulocytes (1.4-6.9) x10^3/uL Basophils # (0-0.4) x10^3/uL D-Dimer < 0.19 (0.0-0.50) mg/L Sodium (137-145) mmol/L Potassium (3.5-5.1) mmol/L Chloride (98-107) mmol/L Carbon Dioxide (22-30) mmol/L Anion Gap (5-15) MEQ/L BUN (9-20) mg/dL Creatinine (0.66-1.25) mg/dL Estimated GFR ML/MIN Glucose (74-106) mg/dL Calcium (8.4-10.2) mg/dL Total Bilirubin (0.2-1.3) mg/dL AST (17-59) U/L ALT (0-50) U/L Alkaline Phosphatase (38-126) U/L Troponin I < 0.012 < 0.012 (0.000-0.034) ng/mL Serum Total Protein (6.3-8.2) g/dL Albumin (3.5-5.0) g/dL Triglycerides (30-150) mg/dL Cholesterol (50-200) mg/dL LDL Cholesterol (30-100) mg/dL HDL Cholesterol (40-60) mg/dL Heart Disease Risk Ratio Influenza Type A Ag (NEGATIVE) Influenza Type B Ag (NEGATIVE) RSV (PCR) (NEGATIVE) SARS-CoV-2 (PCR) (NEGATIVE) 06/03/22 06/03/22 Range/Units 02:26 02:26 WBC (4.0-10.5) x10^3/uL RBC (4.1-5.6) x10^6/uL Hgb (12.5-18.0) g/dL Hct (42-50) % MCV (78-100) fL MCH (26-32) pg MCHC (32-36) g/dL RDW (11.5-14.0) % Plt Count (150-450) x10^3/uL MPV (7.5-11.0) fL Gran % (36.0-66.0) % Immature Gran % (Auto) (0.00-0.4) % Nucleat RBC Rel Count (0.00-0.1) % Eos # (Auto) (0-0.5) x10^3/uL Immature Gran # (Auto) (0.00-0.03) x10^3u/L Absolute Lymphs (auto) (1.0-4.6) x10^3/uL Absolute Monos (auto) (0.0-1.3) x10^3/uL Absolute Nucleated RBC (0.00-0.01) x10^3u/L Lymphocytes % (24.0-44.0) % Monocytes % (0.0-12.0) % Eosinophils % (0.00-5.0) % Basophils % (0.0-0.4) % Absolute Granulocytes (1.4-6.9) x10^3/uL Basophils # (0-0.4) x10^3/uL D-Dimer (0.0-0.50) mg/L Sodium (137-145) mmol/L Potassium (3.5-5.1) mmol/L Chloride (98-107) mmol/L Carbon Dioxide (22-30) mmol/L Anion Gap (5-15) MEQ/L BUN (9-20) mg/dL Creatinine (0.66-1.25) mg/dL Estimated GFR ML/MIN Glucose (74-106) mg/dL Calcium (8.4-10.2) mg/dL Total Bilirubin (0.2-1.3) mg/dL AST (17-59) U/L ALT (0-50) U/L Alkaline Phosphatase (38-126) U/L Troponin I < 0.012 (0.000-0.034) ng/mL Serum Total Protein (6.3-8.2) g/dL Albumin (3.5-5.0) g/dL Triglycerides 113 (30-150) mg/dL Cholesterol 120 (50-200) mg/dL LDL Cholesterol 58 (30-100) mg/dL HDL Cholesterol 41 (40-60) mg/dL Heart Disease Risk Ratio 2.9 Influenza Type A Ag (NEGATIVE) Influenza Type B Ag (NEGATIVE) RSV (PCR) (NEGATIVE) SARS-CoV-2 (PCR) (NEGATIVE) - Radiology Impressions Radiology Exams & Impressions: Radiology Procedures Category Date Time Status CHEST 1 VIEW (PORTABLE) Stat Exams 06/02/22 17:55 Completed - Other Procedures and Tests Respiratory Therapy 06/04/22 05:00 EKG DAILY 06/05/22 05:00 EKG DAILY 06/06/22 05:00 EKG DAILY Hospital Summary - Hospital Course Hospital Course: Chief Complaint Diagnosis chest pain Allergies Allergy/AdvReac Type Severity Reaction Status Date / Time penicillin G Allergy Mild Blisters Verified 06/02/22 17:55 Vital Signs (Last 24 hours) Temp Pulse Resp BP Pulse Ox 06/03/22 11:00 97.7 F 63 17 101/62 97 06/03/22 07:22 98 F 58 L 17 124/60 95 06/03/22 04:00 97.0 F 64 19 125/63 95 06/02/22 22:17 96.9 F 58 L 19 129/73 98 06/02/22 21:10 56 L 12 115/72 94 L 06/02/22 20:00 60 17 115/66 96 06/02/22 19:00 61 16 108/70 94 L 06/02/22 18:04 95 06/02/22 17:55 97.6 F 65 20 105/65 96 Home Medications Medication Instructions Recorded Confirmed Last Taken Type Atorvastatin Calcium 80 mg PO HS 06/02/22 06/02/22 06/01/22 21:00 History Clopidogrel Bisulfate [Plavix] 1 tab PO DAILY 06/02/22 06/02/22 06/02/22 08:00 History Levalbuterol Tartrate 2 puffs IH Q4H PRN PRN 06/02/22 06/02/22 Unknown History [Levalbuterol Tartrate Hfa] Metoprolol Tartrate 25 mg 12.5 mg PO BID 06/02/22 06/02/22 06/02/22 08:00 History [Lopressor 25MG Tab] Nitroglycerin 0.4 mg Tablet 1 tab PO Q4H PRN PRN 06/02/22 06/02/22 06/02/22 17:50 History [Nitrostat 0.4 MG Tablet] Current Medications Generic Name Dose Route Start Last Admin Trade Name Zari PRN Reason Stop Dose Admin Acetaminophen 650 mg 06/02/22 22:08 Acetaminophen 325 Mg Tablet PO 07/02/22 22:07 Q4H PRN PRN PAIN AND/OR FEVER Al Hydrox/Mg Hydrox/Simethicone 30 ml 06/02/22 22:08 06/03/22 01:01 Mag Hydrox/Al Hydrox/Simeth 30 Ml Udcup PO 07/02/22 22:07 30 ml Q4H PRN PRN Administration INDIGESTION Levothyroxine Sodium 112 mcg 06/03/22 06:00 06/03/22 07:44 Levothyroxine Sodium 112 Mcg Tablet PO 07/03/22 05:59 Not Given QAM@0700 [facility] Levothyroxine Sodium 25 mcg 06/03/22 07:00 06/03/22 07:13 Levothyroxine Sodium 25 Mcg Tablet PO 07/03/22 06:59 25 mcg 0700 [facility] Administration Magnesium Hydroxide 30 - 60 ml 06/02/22 22:08 Magnesium Hydroxide 30 Ml Udcup PO 07/02/22 22:07 QDP PRN CONSTIPATION Ondansetron HCl 4 mg 06/02/22 22:08 Ondansetron Hcl 4 Mg/2 Ml Vial IV 07/02/22 22:07 Q4H PRN PRN NAUSEA/VOMITING Senna/Docusate Sodium 2 udtab 06/02/22 22:08 Senna/Docusate Sodium 1 Udtab Tablet PO 07/02/22 22:07 BID PRN PRN CONSTIPATION Discontinued Medications Generic Name Dose Route Start Last Admin Trade Name Freq PRN Reason Stop Dose Admin Aspirin 324 mg 06/02/22 17:54 06/02/22 18:06 Aspirin 81 Mg Tab.Chew PO 06/02/22 17:55 324 mg STAT ONE Administration Aspirin Confirm 06/02/22 18:07 Aspirin 81 Mg Tab.Chew Administered 06/02/22 18:08 Dose 324 mg .ROUTE .STK-MED ONE Sodium Chloride 1,000 mls @ 999 mls/hr 06/02/22 18:35 06/02/22 18:37 Sodium Chloride 0.9% 1000 Ml IV 06/02/22 19:35 999 mls/hr .Q1H1M STA Administration Sodium Chloride Confirm 06/02/22 18:36 Sodium Chloride 0.9% 1000 Ml Administered 06/02/22 18:37 Dose 1,000 mls @ ud .ROUTE .STK-MED ONE Morphine Sulfate 2 mg 06/02/22 17:54 06/02/22 18:06 Morphine Sulfate 2 Mg/Ml Inj IV 06/02/22 17:55 2 mg STAT ONE Administration Morphine Sulfate Confirm 06/02/22 18:03 Morphine Sulfate 2 Mg/Ml Inj Administered 06/02/22 18:04 Dose 2 mg .ROUTE .STK-MED ONE Nitroglycerin 0.4 mg 06/02/22 17:54 06/02/22 18:07 Nitroglycerin 0.4 Mg (Ed) 0.4 Mg Tab.Subl SL 06/02/22 17:55 0.4 mg STAT ONE Administration Nitroglycerin Confirm 06/02/22 18:07 Nitroglycerin 0.4 Mg (Ed) 0.4 Mg Tab.Subl Administered 06/02/22 18:08 Dose 0.4 mg SL .STK-MED ONE Ondansetron HCl 4 mg 06/02/22 17:54 06/02/22 18:06 Ondansetron Hcl 4 Mg/2 Ml Vial IV 06/02/22 17:55 4 mg STAT ONE Administration Ondansetron HCl Confirm 06/02/22 18:03 Ondansetron Hcl 4 Mg/2 Ml Vial Administered 06/02/22 18:04 Dose 4 mg .ROUTE .STK-MED ONE Intake & Output (Last 24 hours) 06/01/22 06/02/22 06/03/22 06/04/22 11:59 11:59 11:59 11:59 Intake Total 640 Output Total 1475 Balance -835 Weight 81.6 kg Laboratory Results (Last 24 hours) 06/03/22 06/03/22 06/02/22 02:26 02:26 21:20 WBC RBC Hgb Hct MCV MCH MCHC RDW Plt Count MPV Gran % Immature Gran % (Auto) Nucleat RBC Rel Count Eos # (Auto) Immature Gran # (Auto) Absolute Lymphs (auto) Absolute Monos (auto) Absolute Nucleated RBC Lymphocytes % Monocytes % Eosinophils % Basophils % Absolute Granulocytes Basophils # D-Dimer Sodium Potassium Chloride Carbon Dioxide Anion Gap BUN Creatinine Estimated GFR Glucose Calcium Total Bilirubin AST ALT Alkaline Phosphatase Troponin I < 0.012 < 0.012 Serum Total Protein Albumin Triglycerides 113 Cholesterol 120 LDL Cholesterol 58 HDL Cholesterol 41 Heart Disease Risk Ratio 2.9 Influenza Type A Ag Influenza Type B Ag RSV (PCR) SARS-CoV-2 (PCR) 06/02/22 06/02/22 06/02/22 18:10 18:10 18:10 WBC RBC Hgb Hct MCV MCH MCHC RDW Plt Count MPV Gran % Immature Gran % (Auto) Nucleat RBC Rel Count Eos # (Auto) Immature Gran # (Auto) Absolute Lymphs (auto) Absolute Monos (auto) Absolute Nucleated RBC Lymphocytes % Monocytes % Eosinophils % Basophils % Absolute Granulocytes Basophils # D-Dimer < 0.19 Sodium 138 Potassium 4.1 Chloride 102 Carbon Dioxide 27 Anion Gap 13.1 BUN 30 H Creatinine 0.93 Estimated GFR > 60.0 Glucose 161 H Calcium 8.4 Total Bilirubin 0.40 AST 39 ALT 31 Alkaline Phosphatase 82 Troponin I < 0.012 Serum Total Protein 6.2 L Albumin 3.7 Triglycerides Cholesterol LDL Cholesterol HDL Cholesterol Heart Disease Risk Ratio Influenza Type A Ag Influenza Type B Ag RSV (PCR) SARS-CoV-2 (PCR) 06/02/22 06/02/22 18:10 07:10 WBC 9.0 RBC 4.93 Hgb 14.3 Hct 43.0 MCV 87.2 MCH 29.0 MCHC 33.3 RDW 14.4 H Plt Count 216 MPV 9.1 Gran % 52.3 Immature Gran % (Auto) 0.6 H Nucleat RBC Rel Count 0.0 Eos # (Auto) 0.10 Immature Gran # (Auto) 0.05 H Absolute Lymphs (auto) 3.53 Absolute Monos (auto) 0.53 Absolute Nucleated RBC 0.00 Lymphocytes % 39.3 Monocytes % 5.9 Eosinophils % 1.1 Basophils % 0.8 Absolute Granulocytes 4.70 Basophils # 0.07 D-Dimer Sodium Potassium Chloride Carbon Dioxide Anion Gap BUN Creatinine Estimated GFR Glucose Calcium Total Bilirubin AST ALT Alkaline Phosphatase Troponin I Serum Total Protein Albumin Triglycerides Cholesterol LDL Cholesterol HDL Cholesterol Heart Disease Risk Ratio Influenza Type A Ag NEGATIVE Influenza Type B Ag NEGATIVE RSV (PCR) NEGATIVE SARS-CoV-2 (PCR) NEGATIVE Orders (Last 24 hours) Category Date Time Status Bedrest with BRP/BSC ROUTINE Activity 06/02/22 22:08 Active Automobile Rental Agent STAT Care 06/02/22 17:55 Completed Code Status Order ROUTINE Care 06/02/22 22:08 Active EKG-ER Only STAT Care 06/02/22 17:54 Completed IV Care Q6H Care 06/02/22 22:08 Active IV Insertion STAT Care 06/02/22 17:54 Completed Implement Chest Pain Pathway ROUTINE Care 06/02/22 22:08 Active Miscellaneous Nursing Order ROUTINE Care 06/02/22 22:[address] in Observation ROUTINE Care 06/02/22 22:08 Active Pulse Oximetry (ED) STAT Care 06/02/22 17:54 Completed Bakari Solomon ROUTINE Care 06/02/22 22:08 Active Weight,Daily 0600 Care 06/02/22 22:08 Active Heart-Healthy Diet Diet 06/03/22 Breakfast Active Discharge Routine Discharge 06/03/22 Ordered CHEST 1 VIEW (PORTABLE) Stat Exams 06/02/22 17:55 Completed CBC W DIFF Stat Lab 06/02/22 18:10 Completed CMP Stat Lab 06/02/22 18:10 Completed D-DIMER QUANTITATIVE Stat Lab 06/02/22 18:10 Completed LIPID PROFILE AM.LAB Lab 06/03/22 02:26 Completed TROPONIN Q4H Lab 06/02/22 18:10 Completed TROPONIN Q4H Lab 06/02/22 21:20 Completed TROPONIN Q4H Lab 06/03/22 02:26 Completed Acetaminophen 325 mg [Tylenol 325 mg] Med 06/02/22 22:08 Active 650 mg PO Q4H PRN PRN Aspirin 81 gm Chew [Baby Aspirin 81 mg Chew] Med 06/02/22 18:07 Discontinued 324 mg .ROUTE .STK-MED ONE Aspirin 81 gm Chew [Baby Aspirin 81 mg Chew] Med 06/02/22 17:54 Di scontinued 324 mg PO STAT ONE Levothyroxine Sodium 112 Mcg [Synthroid 112 Mcg] Med 06/03/22 06:00 Active 112 mcg PO QAM@0700 Levothyroxine Sodium 25 Mcg [Synthroid 25 Mcg] Med 06/03/22 07:00 Active 25 mcg PO 0700 Mag Hydrox/Al Hydrox/Simeth [Maalox Es 30 ml Unit Med 06/02/22 22:08 Active Dose] 30 ml PO Q4H PRN PRN Magnesium Hydroxide 30 ml [Milk of Magnesia 30 ml Med 06/02/22 22:08 Active ] 30 - 60 ml PO QDP PRN Morphine Sulfate 2 mg Inj Med 06/02/22 18:03 Discontinued 2 mg .ROUTE .STK-MED ONE Morphine Sulfate 2 mg Inj Med 06/02/22 17:54 Discontinued 2 mg IV STAT ONE NaCl 0.9% 1000 ml [Sodium Chloride 0.9% 1000 ML] 1,000 Med 06/02/22 18:36 Discontinued ml .ROUTE UD NaCl 0.9% 1000 ml [Sodium Chloride 0.9% 1000 ML] 1,000 Med 06/02/22 18:35 Discontinued ml IV 999 mls/hr Nitroglycerin 0.4 mg (Ed) [Nitrostat 0.4 MG (ED)] Med 06/02/22 18:07 Discontinued 0.4 mg SL .STK-MED ONE Nitroglycerin 0.4 mg (Ed) [Nitrostat 0.4 MG (ED)] Med 06/02/22 17:54 Discontinued 0.4 mg SL STAT ONE Ondansetron HCl 4 mg/2 ml [Zofran 4 MG/2 ML VIAL] Med 06/02/22 18:03 Discontinued 4 mg .ROUTE .STK-MED ONE Ondansetron HCl 4 mg/2 ml [Zofran 4 MG/2 ML VIAL] Med 06/02/22 22:08 Active 4 mg IV Q4H PRN PRN Ondansetron HCl 4 mg/2 ml [Zofran 4 MG/2 ML VIAL] Med 06/02/22 17:54 Discontinued 4 mg IV STAT ONE Senna/Docusate Sodium Tab [Senokot-S Tablet] Med 06/02/22 22:08 Active 2 udtab PO BID PRN PRN EKG DAILY RT 06/03/22 05:00 Completed EKG DAILY RT 06/04/22 05:00 Active EKG DAILY RT 06/05/22 05:00 Active EKG DAILY RT 06/06/22 05:00 Active EKG Q8HX2,QAMX3,PRN RT 06/02/22 22:08 Completed Patient Care Notes (Last 24 hours) 06/03/22 11:41 Nursing Note by Carissa Vargas is here rounding on patient. Initialized on 06/03/22 11:41 - END OF NOTE 06/03/22 01:01 Nursing Note by Joyce Clancy Patient complaint of epigastria top of stomach pressure discomfort; patient denies CP or SOB. Maalox 30ml given. Repirations regular, no changed noted on telemetry, NSR, skin warm/dry. This RN will continue to monitor. Addendum entered by Joyce Clancy RN 06/03/22 01:12: 0112: Patient reports, feeling better; pressure starting to go away. Addendum entered by Joyce Clancy RN 06/03/22 06:27: Patient resting quietly, aroused from sleep. Patient denies any discomfort or pain; call light in reach. Initialized on 06/03/22 01:01 - END OF NOTE 06/02/22 22:00 (created 06/03/22 06:22) Nursing Note by Joyce Clancy Patient received to the unit/[id number] via stretcher fro ED, Awake, oriented x4. Patient adm for CP R/O OK. Telemetry applied; n o changes from EKG, NSR. Patient denies CP, SOB, nausea/vomiting or other complaint. See adm assessment. Patient introduced to room, call light and personal belonging in reach. Initialized on 06/03/22 06:22 - END OF NOTE - Vitals & Intake/Output Vital Signs: Vital Signs Temperature 97.7 F 06/03/22 11:00 Pulse Rate 63 06/03/22 11:00 Respiratory Rate 17 06/03/22 11:00 Blood Pressure 101/62 06/03/22 11:00 O2 Sat by Pulse Oximetry 97 06/03/22 11:00 Intake & Output: Intake & Output 06/01/22 06/02/22 06/03/22 06/04/22 11:59 11:59 11:59 11:59 Intake Total 640 Output Total 1475 Balance -835 Weight 81.6 kg - Lab Result Diagrams: 06/02/22 18:10 06/02/22 18:10 Lab Results-Last 24 Hrs: Lab Results-Last 24 Hours 06/02/22 06/02/22 06/02/22 Range/Units 07:10 18:10 18:10 WBC 9.0 (4.0-10.5) x10^3/uL RBC 4.93 (4.1-5.6) x10^6/uL Hgb 14.3 (12.5-18.0) g/dL Hct 43.0 (42-50) % MCV 87.2 (78-100) fL MCH 29.0 (26-32) pg MCHC 33.3 (32-36) g/dL RDW 14.4 H (11.5-14.0) % Plt Count 216 (150-450) x10^3/uL MPV 9.1 (7.5-11.0) fL Gran % 52.3 (36.0-66.0) % Immature Gran % (Auto) 0.6 H (0.00-0.4) % Nucleat RBC Rel Count 0.0 (0.00-0.1) % Eos # (Auto) 0.10 (0-0.5) x10^3/uL Immature Gran # (Auto) 0.05 H (0.00-0.03) x10^3u/L Absolute Lymphs (auto) 3.53 (1.0-4.6) x10^3/uL Absolute Monos (auto) 0.53 (0.0-1.3) x10^3/uL Absolute Nucleated RBC 0.00 (0.00-0.01) x10^3u/L Lymphocytes % 39.3 (24.0-44.0) % Monocytes % 5.9 (0.0-12.0) % Eosinophils % 1.1 (0.00-5.0) % Basophils % 0.8 (0.0-0.4) % Absolute Granulocytes 4.70 (1.4-6.9) x10^3/uL Basophils # 0.07 (0-0.4) x10^3/uL D-Dimer (0.0-0.50) mg/L Sodium 138 (137-145) mmol/L Potassium 4.1 (3.5-5.1) mmol/L Chloride 102 (98-107) mmol/L Carbon Dioxide 27 (22-30) mmol/L Anion Gap 13.1 (5-15) MEQ/L BUN 30 H (9-20) mg/dL Creatinine 0.93 (0.66-1.25) mg/dL Estimated GFR > 60.0 ML/MIN Glucose 161 H (74-106) mg/dL Calcium 8.4 (8.4-10.2) mg/dL Total Bilirubin 0.40 (0.2-1.3) mg/dL AST 39 (17-59) U/L ALT 31 (0-50) U/L Alkaline Phosphatase 82 (38-126) U/L Troponin I (0.000-0.034) ng/mL Serum Total Protein 6.2 L (6.3-8.2) g/dL Albumin 3.7 (3.5-5.0) g/dL Triglycerides (30-150) mg/dL Cholesterol (50-200) mg/dL LDL Cholesterol (30-100) mg/dL HDL Cholesterol (40-60) mg/dL Heart Disease Risk Ratio Influenza Type A Ag NEGATIVE (NEGATIVE) Influenza Type B Ag NEGATIVE (NEGATIVE) RSV (PCR) NEGATIVE (NEGATIVE) SARS-CoV-2 (PCR) NEGATIVE (NEGATIVE) 06/02/22 06/02/22 06/02/22 Range/Units 18:10 18:10 21:20 WBC (4.0-10.5) x10^3/uL RBC (4.1-5.6) x10^6/uL Hgb (12.5-18.0) g/dL Hct (42-50) % MCV (78-100) fL MCH (26-32) pg MCHC (32-36) g/dL RDW (11.5-14.0) % Plt Count (150-450) x10^3/uL MPV (7.5-11.0) fL Gran % (36.0-66.0) % Immature Gran % (Auto) (0.00-0.4) % Nucleat RBC Rel Count (0.00-0.1) % Eos # (Auto) (0-0.5) x10^3/uL Immature Gran # (Auto) (0.00-0.03) x10^3u/L Absolute Lymphs (auto) (1.0-4.6) x10^3/uL Absolute Monos (auto) (0.0-1.3) x10^3/uL Absolute Nucleated RBC (0.00-0.01) x10^3u/L Lymphocytes % (24.0-44.0) % Monocytes % (0.0-12.0) % Eosinophils % (0.00-5.0) % Basophils % (0.0-0.4) % Absolute Granulocytes (1.4-6.9) x10^3/uL Basophils # (0-0.4) x10^3/uL D-Dimer < 0.19 (0.0-0.50) mg/L Sodium (137-145) mmol/L Potassium (3.5-5.1) mmol/L Chloride (98-107) mmol/L Carbon Dioxide (22-30) mmol/L Anion Gap (5-15) MEQ/L BUN (9-20) mg/dL Creatinine (0.66-1.25) mg/dL Estimated GFR ML/MIN Glucose (74-106) mg/dL Calcium (8.4-10.2) mg/dL Total Bilirubin (0.2-1.3) mg/dL AST (17-59) U/L ALT (0-50) U/L Alkaline Phosphatase (38-126) U/L Troponin I < 0.012 < 0.012 (0.000-0.034) ng/mL Serum Total Protein (6.3-8.2) g/dL Albumin (3.5-5.0) g/dL Triglycerides (30-150) mg/dL Cholesterol (50-200) mg/dL LDL Cholesterol (30-100) mg/dL HDL Cholesterol (40-60) mg/dL Heart Disease Risk Ratio Influenza Type A Ag (NEGATIVE) Influenza Type B Ag (NEGATIVE) RSV (PCR) (NEGATIVE) SARS-CoV-2 (PCR) (NEGATIVE) 06/03/22 06/03/22 Range/Units 02:26 02:26 WBC (4.0-10.5) x10^3/uL RBC (4.1-5.6) x10^6/uL Hgb (12.5-18.0) g/dL Hct (42-50) % MCV (78-100) fL MCH (26-32) pg MCHC (32-36) g/dL RDW (11.5-14.0) % Plt Count (150-450) x10^3/uL MPV (7.5-11.0) fL Gran % (36.0-66.0) % Immature Gran % (Auto) (0.00-0.4) % Nucleat RBC Rel Count (0.00-0.1) % Eos # (Auto) (0-0.5) x10^3/uL Immature Gran # (Auto) (0.00-0.03) x10^3u/L Absolute Lymphs (auto) (1.0-4.6) x10^3/uL Absolute Monos (auto) (0.0-1.3) x10^3/uL Absolute Nucleated RBC (0.00-0.01) x10^3u/L Lymphocytes % (24.0-44.0) % Monocytes % (0.0-12.0) % Eosinophils % (0.00-5.0) % Basophils % (0.0-0.4) % Absolute Granulocytes (1.4-6.9) x10^3/uL Basophils # (0-0.4) x10^3/uL D-Dimer (0.0-0.50) mg/L Sodium (137-145) mmol/L Potassium (3.5-5.1) mmol/L Chloride (98-107) mmol/L Carbon Dioxide (22-30) mmol/L Anion Gap (5-15) MEQ/L BUN (9-20) mg/dL Creatinine (0.66-1.25) mg/dL Estimated GFR ML/MIN Glucose (74-106) mg/dL Calcium (8.4-10.2) mg/dL Total Bilirubin (0.2-1.3) mg/dL AST (17-59) U/L ALT (0-50) U/L Alkaline Phosphatase (38-126) U/L Troponin I < 0.012 (0.000-0.034) ng/mL Serum Total Protein (6.3-8.2) g/dL Albumin (3.5-5.0) g/dL Triglycerides 113 (30-150) mg/dL Cholesterol 120 (50-200) mg/dL LDL Cholesterol 58 (30-100) mg/dL HDL Cholesterol 41 (40-60) mg/dL Heart Disease Risk Ratio 2.9 Influenza Type A Ag (NEGATIVE) Influenza Type B Ag (NEGATIVE) RSV (PCR) (NEGATIVE) SARS-CoV-2 (PCR) (NEGATIVE) - Radiology Exams Ordered Rad Exams-Entire Visit: Radiology Procedures Category Date Time Status CHEST 1 VIEW (PORTABLE) Stat Exams 06/02/22 17:55 Completed - Procedures and Test Procedures and Tests throughout Hospitalization: Therapy Orders & Screens 06/02/22 22:08 EKG [id number],QAMX3,PRN Comment: 06/03/22 05:00 EKG DAILY Comment: Diagnosis: chest pain 06/04/22 05:00 EKG DAILY Comment: Diagnosis: chest pain 06/05/22 05:00 EKG DAILY Comment: Diagnosis: chest pain 06/06/22 05:00 EKG DAILY Comment: Diagnosis: chest pain - Discharge Discharge Date: 06/03/22 Disposition: Home, Self-Care Condition: Stable Prescriptions: Continue Lisinopril 10 mg [Zestril 10 MG] 10 mg PO DAILY Levothyroxine Sodium 137 mcg PO DAILY Empagliflozin/Metformin HCl [Synjardy 12.5-1,000 mg Tablet] 1 tab PO DAILY Aspirin EC 81 mg [Ecotrin 81 mg] 81 mg PO DAILY Ondansetron ODT 4 MG [Zofran Odt 4 mg] 4 mg PO Q4HPRN PRN PRN Reason: n/v Nitroglycerin 0.4 mg Tablet [Nitrostat 0.4 MG Tablet] 1 tab PO Q4H PRN PRN PRN Reason: Chest Pain Metoprolol Tartrate 25 mg [Lopressor 25MG Tab] 12.5 mg PO BID Levalbuterol Tartrate [Levalbuterol Tartrate Hfa] 2 puffs IH Q4H PRN PRN PRN Reason: Shortness Of Breath Clopidogrel Bisulfate [Plavix] 1 tab PO DAILY Atorvastatin Calcium 80 mg PO HS Instructions: Chest Pain (DC) Follow up with: ABBY CHINCHILLA [CONSULTING PHYSICIAN] - 07/23/22 1:00 pm MAMADOU HUTTON MD [Primary Care Provider] - 06/11/22 1:30 pm (at [place] ) ELISHA GALAVIZ NP [NON-STAFF PHY W/O PRIVILEGES] - Forms: Discharge Instructions
== END 2022-06-03 12:57 | disposition home or self-care (01) ==
LOC: ED 17:52 → MED SURG 22:06
PROVIDERS: ADMIT General Practice; ATTEND General Practice
DX: R07.9 Chest pain, unspecified (principal); I10 Essential (primary) hypertension; I25.2 Old myocardial infarction; E11.9 Type 2 diabetes mellitus without complications; Z79.01 Long term (current) use of anticoagulants; Z79.899 Other long term (current) drug therapy; Z85.850 Personal history of malignant neoplasm of thyroid; Z20.828 Contact with and (suspected) exposure to other viral communicable diseases
CPT/HCPCS: 0241U; 36000; 36415; 71045; 80053; 80061; 83721; 84484; 85025; 85379; 93005; 93041; 94760; 96374; 96375; 99285; 99291; 93268; J2270; J2405; A9270-GY; G0378